=== PATIENT | female | born 1995 | race Caucasian/White ===

== ENCOUNTER 2017-06-08 12:17 | Inpatient (IN) | payer OTHER ==
[~2017-06-08] VITALS: Ht 160 cm; Wt 72.6 kg
[2017-06-08] MEDS ORDERED: FOLIC ACID20 MG PO (13:54)
== END 2017-06-10 11:40 | DRG 775 ==
LOC: LDR 12:17 → OB/GYN 12:17 → LDR 18:30 → OB/GYN 18:31
PROC: 10E0XZZ Delivery of Products of Conception, External Approach (ICD-10-PCS; principal; 2017-06-08)
PROC: 4A1HXCZ Monitoring of Products of Conception, Cardiac Rate, External Approach (ICD-10-PCS; 2017-06-08)
DX: O80 Encounter for full-term uncomplicated delivery (principal); Z3A.37 37 weeks gestation of pregnancy; Z37.0 Single live birth

== ENCOUNTER 2018-04-08 12:40 | Outpatient (CLI) | payer OTHER ==
[~2018-04-08 12:40] MED LIST: FOLIC ACID20 MG PO
== END 2018-04-08 13:30 | disposition home or self-care (01) ==
LOC: NST 12:40
DX: Z34.83 Encounter for supervision of other normal pregnancy, third trimester (principal)

== ENCOUNTER 2018-04-25 12:48 | Outpatient (CLI) | payer OTHER | END 2018-04-25 14:32 | disposition home or self-care (01) | LOC: NST 12:48 | DX: Z34.83 Encounter for supervision of other normal pregnancy, third trimester (principal) ==

== ENCOUNTER 2018-05-17 09:52 | Outpatient (CLI) | payer OTHER ==
[2018-05-18] MEDS ORDERED: PRENATAL TABLE1 EAC1 PO (11:34)
[2018-05-18] MEDS ORDERED: IRON236 MG PO (11:35)
== END 2018-05-17 10:59 | disposition home or self-care (01) ==
LOC: NST 09:52
DX: Z34.83 Encounter for supervision of other normal pregnancy, third trimester (principal)

== ENCOUNTER 2018-05-18 10:48 | Inpatient (IN) | payer OTHER ==
[~2018-05-18] VITALS: Ht 157.5 cm; Wt 74.4 kg
[2018-05-18] MEDS ORDERED: PRENATAL TABLE1 EAC1 PO (11:34)
[2018-05-18] MEDS ORDERED: IRON236 MG PO (11:35)
== END 2018-05-20 12:21 | DRG 798 ==
LOC: LDR 10:48 → OB/GYN 10:48
PROVIDERS: ADMIT Obstetrics & Gynecology
PROC: 0UB70ZZ Excision of Bilateral Fallopian Tubes, Open Approach (ICD-10-PCS; 2018-05-18)
PROC: 4A1HXCZ Monitoring of Products of Conception, Cardiac Rate, External Approach (ICD-10-PCS; 2018-05-18)
PROC: 10E0XZZ Delivery of Products of Conception, External Approach (ICD-10-PCS; principal; 2018-05-18 17:00)
DX: O60.14X0 Preterm labor third trimester with preterm delivery third trimester, not applicable or unspecified (principal); Z37.0 Single live birth; Z3A.36 36 weeks gestation of pregnancy; Z30.2 Encounter for sterilization; Z22.330 Carrier of Group B streptococcus